=== PATIENT | male | born 1980 | race Caucasian/White ===

== ENCOUNTER 2019-07-21 11:25 | Emergency (ER) | payer OTHER, SELFPAY ==
--- NOTE | 2019-07-21 12:09 | RAD ---
Exam: Chest one view HISTORY:Pain. Trauma. Puncture the right axilla Caught him while reaching to get tires. Comparison: 09/14/2013 FINDINGS: Cardiac silhouette: Normal Aorta: Unremarkable Pulmonary vessels: Normal Costophrenic angles: Clear LUNGS: No masses or consolidation. Pneumothorax: None Osseous abnormalities: None No radiopaque foreign body in the right axilla. IMPRESSION: No acute cardiopulmonary process. No evidence of right-sided pneumothorax. No radiopaque foreign body in the right axilla.
--- NOTE | 2019-07-21 12:15 | RAD ---
Exam:3 views right shoulder HISTORY: Pain. Trauma. COMPARISON: None FINDINGS: Glenohumeral joint space is preserved. No fracture or dislocation. Visualized right ribs ar e unremarkable. IMPRESSION: No fracture or dislocation.
[2019-07-21] MEDS ORDERED: Morphine 4 MG/ML VIAL ONE ×4 (12:25→12:30)
[2019-07-21] MEDS ORDERED: Lidocaine 1% w/Epinephrine 1:100K 20 ML VIAL ONE (12:26)
== END 2019-07-21 13:15 | disposition home or self-care (01) ==
LOC: ERS 11:25
DX: S41.111A Laceration without foreign body of right upper arm, initial encounter (principal); F17.210 Nicotine dependence, cigarettes, uncomplicated; W26.8XXA Contact with other sharp object(s), not elsewhere classified, initial encounter; Y92.69 Other specified industrial and construction area as the place of occurrence of the external cause
CPT/HCPCS: 12002; 71045; 96374; J2001; J2270

== ENCOUNTER 2020-01-23 21:15 | Emergency (ER) | payer SELFPAY ==
[2020-01-24] MEDS ORDERED: diphenhydrAMINE 50 MG/ML VIAL ONE (00:23)
[2020-01-24] MEDS ORDERED: Acetaminophen 500 MG TAB ONE (00:23)
[2020-01-24] MEDS ORDERED: Metoclopramide HCl 10 MG/2 ML VIAL ONE (00:23)
--- NOTE | 2020-01-24 06:50 | CT ---
PRELIMINARY REPORT/[facility]/EMERGENCY AFTER HOURS PROCEDURE: EXAM: CT Head Without Intravenous Contrast. CLINICAL HISTORY: HEADACHE; HEAD THROBBING SINCE YESTERDAY/LAST NIGHT TECHNIQUE: Axial computed tomography images of the head/brain without intravenous contrast. COMPARISON: None provided. FINDINGS: BRAIN: No acute intraparenchymal hemorrhage. No mass lesion. No CT evidence for acute territorial inf arct. No midline shift or extra-axial collection. VENTRICLES: No hydrocephalus. ORBITS: The orbits are unremarkable. SINUSES AND MASTOIDS: The paranasal sinuses and mastoid air cells are clear. SOFT TISSUES: No significant facial or scalp soft tissue swelling evident. No radiopaque foreign body is seen. BONES: No acute skull fracture. IMPRESSION: No acute intracranial abnormality. ELECTRONICALLY SIGNED BY: Carmelita Hudson MD Jan 24, 2020 12:51:44 AM [employer] This report is intended for review by the ordering physician only, in accordance of law. If you recei ve this report in error, please call [facility] at [phone]. FINAL REPORT EMERGENCY AFTER HOURS CT BRAIN WITHOUT CONTRAST: FINDINGS/IMPRESSION: I agree with the findings and impression given in the preliminary report per [facility] physici an. No evidence of acute intracranial abnormality.
== END 2020-01-24 02:09 | disposition home or self-care (01) ==
LOC: ERS 21:15
DX: R51 Headache (principal); F17.210 Nicotine dependence, cigarettes, uncomplicated
CPT/HCPCS: 70450; 96365; 96366; 96375; J1200; J2765

== ENCOUNTER 2021-03-27 10:25 | Emergency (ER) | payer SELFPAY ==
[2021-03-27] MEDS ORDERED: Clindamycin/D5W 900 mg/50 ml Premix Bag ONE (11:10)
[2021-03-27 11:15] LABS: #Basophils 0.1 thou/uL (0.0-0.2); #Eosinphils 1.1 thou/uL (0.0-0.7); #Lymphocytes 2.2 thou/uL (1.20-3.40); #Monocytes 1.4 thou/uL (0.11-0.59); #Neutrophils 10.3 thou/uL (1.40-6.50); %Basophils 0.8 % (0.0-1.0); %Lymphocytes 14.4 % (21.0-51.0); %Monocytes 9.3 % (0.0-10.0); %Neutrophils 68.5 % (42.0-75.0); Hemoglobin 15.7 g/dL (14.0-18.0); Mean Corpuscular HGB CONC 31.6 g/dL (32.0-36.0); Mean Corpuscular Hemoglobin 30.4 pg (27.0-31.0); Mean Corpuscular Volume 96.3 fL (78.0-98.0); Mean Platelet Volume 6.9 fL (7.4-10.4); Platelet Count 376 thou/uL (130-400); RBC Distribution Width 12.1 % (11.5-14.5); Red Blood Cell (RBC) Count 5.18 mill/uL (4.70-6.10)
[2021-03-27] MEDS ORDERED: Lidocaine 1% w/Epinephrine 1:100K 20 ML VIAL ONE (11:52)
[2021-03-27 12:16] LABS: Albumin 3.8 g/dL (3.5-5.0)
[2021-03-27 12:17] LABS: Chloride 102 mmol/L (98-107); Sodium 136 mmol/L (136-145)
[2021-03-27 12:18] LABS: Calcium 8.9 mg/dL (7.8-10.44)
[2021-03-27 12:19] LABS: Globulin 3.6 g/dL (2.4-3.5); Glucose 101 mg/dL (70-105); Protein, Total 7.4 g/dL (6.0-8.3)
[2021-03-27 12:20] LABS: Anion Gap 10 mmol/L (10-20); Bilirubin, Total 0.5 mg/dL (0.2-1.2); Carbon Dioxide 28 mmol/L (22-29)
[2021-03-27 12:21] LABS: Alkaline Phosphatase 144 U/L (40-110)
[2021-03-27 12:22] LABS: Calc. Creatinine Clearance 0 mL/min (70-130)
[2021-03-27 12:23] LABS: BUN (Urea Nitrogen) 8 mg/dL (8.9-20.6)
[2021-03-27 12:24] LABS: ALT (SGPT) 10 U/L (8-55); AST (SGOT) 14 U/L (5-34)
== END 2021-03-27 12:57 | disposition home or self-care (01) ==
LOC: ERS 10:25
DX: L02.414 Cutaneous abscess of left upper limb (principal); F17.210 Nicotine dependence, cigarettes, uncomplicated
CPT/HCPCS: 10060; 36415; 80053; 83605; 85025; 87040; 96365; J3490

== ENCOUNTER 2023-07-25 05:15 | Emergency (ER) | payer SELFPAY ==
[2023-07-25] MEDS ORDERED: Ondansetron ODT 4 MG TAB ONE (05:26)
[2023-07-25 05:49] LABS: #Basophils 0.1 thou/uL (0.0-0.2); #Eosinphils 0.5 thou/uL (0.0-0.7); #Monocytes 1.4 thou/uL (0.11-0.59); #Neutrophils 12.9 thou/uL (1.40-6.50); %Basophils 0.5 % (0.0-1.0); %Eosinophils 2.7 % (0.0-10.0); %Lymphocytes 14.1 % (21.0-51.0); %Monocytes 7.9 % (0.0-10.0); %Neutrophils 74.2 % (42.0-75.0); Hematocrit 36.1 % (42.0-52.0); Hemoglobin 11.8 g/dL (14.0-18.0); Mean Corpuscular HGB CONC 32.7 g/dL (32.0-36.0); Mean Corpuscular Hemoglobin 32.9 pg (27.0-31.0); Mean Corpuscular Volume 100.6 fl (78.0-98.0); Mean Platelet Volume 9.4 fL (7.4-10.4); Platelet Count 252 10x3/uL (130-400); RBC Distribution Width 13.5 % (11.5-14.5); Red Blood Cell (RBC) Count 3.59 mill/uL (4.70-6.10); White Blood Cell (WBC) Count 17.3 10x3/uL (4.8-10.8)
[2023-07-25] MEDS ORDERED: Atropine Sulfate 1 mg/10 ml Syringe ONE (05:53)
[2023-07-25] MEDS ORDERED: Ondansetron PF 4 MG/2 ML Vial ONE (05:54)
[2023-07-25 06:14] LABS: ALT (SGPT) 11 U/L (8-55); AST (SGOT) 19 U/L (5-34); Albumin 3.9 g/dL (3.5-5.0); Alkaline Phosphatase 84 U/L (40-110); Anion Gap 12 mmol/L (10-20); BUN (Urea Nitrogen) 14 mg/dL (8.9-20.6); Bilirubin, Total 0.2 mg/dL (0.2-1.2); Calc. Creatinine Clearance 0 mL/min (70-130); Calcium 9.8 mg/dL (7.8-10.44); Carbon Dioxide 29 mmol/L (22-29); Chloride 98 mmol/L (98-107); Estimated GFR 64; Globulin 3.2 g/dL (2.4-3.5); Glucose 112 mg/dL (70-105); Lipase 53 U/L (8-78); Potassium 4.2 mmol/L (3.5-5.1); Protein, Total 7.1 g/dL (6.0-8.3); Sodium 135 mmol/L (136-145)
[2023-07-25 06:18] LABS: Troponin I Less than 0.010 ng/mL (< 0.028)
[2023-07-25] MEDS ORDERED: fentaNYL 50 mcg/mL 1 mL Vial ONE (06:21)
[2023-07-25] MEDS ORDERED: Morphine 4 MG/ML VIAL ONE (08:58)
[2023-07-25] MEDS ORDERED: Promethazine HCl 25 MG/ML VIAL ONE (08:58)
[2023-07-25] MEDS ORDERED: Iopamidol-370 76% 500 ML MDV (1 ML CHARGE) ONE (10:06)
[2023-07-25 10:22] LABS: Bacteria/HPF None Seen HPF (None Seen); Bilirubin Negative (Negative); Blood, Urine Negative (Negative); CAUTI Indications for Culture Dysuria,urgency,freq; Clarity Turbid (Clear); Glucose, Urine (Dipstick) 50 mg/dL (Negative); Ketone, Urine Negative (Negative); Leukocyte Negative Leu/uL (Negative); Nitrite Negative (Negative); Protein, Urine (Dipstick) Negative (Neg-Trace); RBC/HPF 0-3 HPF (0-3); Specific Gravity, Urine 1.041 (1.002-1.036); Squamous Epithelial 0-3 HPF (0-3); Urobilinogen Normal mg/dL (Less than 2); WBC/HPF None Seen HPF (0-3)
[2023-07-25 10:24] LABS: Urine Culture Reflex No No
== END 2023-07-25 11:56 | disposition home or self-care (01) ==
LOC: ERS 05:15
DX: R11.10 Vomiting, unspecified (principal); R10.84 Generalized abdominal pain; R00.1 Bradycardia, unspecified; R19.7 Diarrhea, unspecified; F17.210 Nicotine dependence, cigarettes, uncomplicated
CPT/HCPCS: 36415; 74177; 80053; 81001; 83690; 84484; 85025; 93005; 96365; 96375; J0461; J2270; J2405; J2550; J3010; Q0162; Q9967

== ENCOUNTER 2023-10-21 17:57 | Inpatient (IN) | payer SELFPAY ==
[~2023-10-21 17:57] MED LIST: Iopamidol-370 76% 500 ML MDV (1 ML CHARGE) ONE
[2023-10-21] MEDS ORDERED: Ketorolac Tromethamine 30 MG/ML VIAL ONE (18:12)
[2023-10-21] MEDS ORDERED: Ondansetron PF 4 MG/2 ML Vial ONE (18:13)
[2023-10-21] MEDS ORDERED: Dicyclomine 20 MG TAB ONE (18:20)
[2023-10-21 18:35] LABS: #Basophils 0.1 thou/uL (0.0-0.2); #Monocytes 0.6 thou/uL (0.11-0.59); #Neutrophils 14.6 thou/uL (1.40-6.50); %Basophils 0.3 % (0.0-1.0); %Eosinophils 0.1 % (0.0-10.0); %Lymphocytes 5.7 % (21.0-51.0); %Monocytes 3.6 % (0.0-10.0); %Neutrophils 89.7 % (42.0-75.0); Hematocrit 39.8 % (42.0-52.0); Hemoglobin 13.2 g/dL (14.0-18.0); Mean Corpuscular HGB CONC 33.2 g/dL (32.0-36.0); Mean Corpuscular Hemoglobin 32.6 pg (27.0-31.0); Mean Corpuscular Volume 98.3 fl (78.0-98.0); Mean Platelet Volume 9.6 fL (7.4-10.4); Platelet Count 302 10x3/uL (130-400); RBC Distribution Width 13.6 % (11.5-14.5); Red Blood Cell (RBC) Count 4.05 mill/uL (4.70-6.10); White Blood Cell (WBC) Count 16.3 10x3/uL (4.8-10.8)
[2023-10-21] MEDS ORDERED: Haloperidol Lactate 5 MG/ML VIAL ONE (18:55)
[2023-10-21 19:00] LABS: ALT (SGPT) 18 U/L (8-55); AST (SGOT) 29 U/L (5-34); Albumin 4.4 g/dL (3.5-5.0); Alkaline Phosphatase 102 U/L (40-110); Anion Gap 13 mmol/L (10-20); BUN (Urea Nitrogen) 10 mg/dL (8.9-20.6); Bilirubin, Total 0.5 mg/dL (0.2-1.2); Calc. Creatinine Clearance 0 mL/min (70-130); Calcium 9.3 mg/dL (7.8-10.44); Carbon Dioxide 27 mmol/L (22-29); Chloride 100 mmol/L (98-107); Estimated GFR 88; Globulin 3.3 g/dL (2.4-3.5); Glucose 118 mg/dL (70-105); Lipase 18 U/L (8-78); Magnesium 1.8 mg/dL (1.6-2.6); Potassium 3.9 mmol/L (3.5-5.1); Protein, Total 7.7 g/dL (6.0-8.3); Sodium 136 mmol/L (136-145)
[2023-10-21 19:04] LABS: Troponin I Less than 0.010 ng/mL (< 0.028)
[2023-10-21 22:17] LABS: Troponin I Less than 0.010 ng/mL (< 0.028)
[2023-10-21 22:27] LABS: Bacteria/HPF None Seen HPF (None Seen); Bilirubin Negative (Negative); Blood, Urine Negative (Negative); CAUTI Indications for Culture Dysuria,urgency,freq; Clarity Clear (Clear); Glucose, Urine (Dipstick) 30 mg/dL (Negative); Ketone, Urine Trace mg/dL (Negative); Leukocyte Negative Leu/uL (Negative); Mucous/LPF Rare LPF (<2+); Nitrite Negative (Negative); Protein, Urine (Dipstick) 20 mg/dL (Neg-Trace); RBC/HPF 0-3 HPF (0-3); Squamous Epithelial 0-3 HPF (0-3); Urobilinogen Normal mg/dL (Less than 2); WBC/HPF 0-3 HPF (0-3)
[2023-10-21 22:28] LABS: Specific Gravity, Urine 1.054 (1.002-1.036); Urine Culture Reflex No No
[2023-10-21 23:55] VITALS: BMI 23.3
[2023-10-22 00:11] LABS: Amphetamine Detected (NotDetected); Barbiturates Screen Not Detected (NotDetected); Benzodiazepine Screen Not Detected (NotDetected); Cocaine Metabolite Screen Not Detected (NotDetected); Methadone Not Detected (NotDetected); Methamphetamine Detected (NotDetected); Opiate Screen Not Detected (NotDetected); Oxycodone Screen Not Detected (NotDetected); Phencyclidine (PCP) Not Detected (NotDetected); THC/Cannabinoid Screen Not Detected (NotDetected); Tricyclic Screen Not Detected (NotDetected)
[2023-10-22] MEDS: Ondansetron PF 4 MG/2 ML Vial IVP PRN (00:55)
[2023-10-22 01:30] LABS: Troponin I Less than 0.010 ng/mL (< 0.028)
[2023-10-22 04:41] LABS: #Monocytes 1.2 thou/uL (0.11-0.59); #Neutrophils 15.9 thou/uL (1.40-6.50); %Basophils 0.2 % (0.0-1.0); %Eosinophils 0.1 % (0.0-10.0); %Lymphocytes 7.4 % (21.0-51.0); %Monocytes 6.6 % (0.0-10.0); %Neutrophils 85.2 % (42.0-75.0); Hematocrit 39.8 % (42.0-52.0); Hemoglobin 12.7 g/dL (14.0-18.0); Mean Corpuscular HGB CONC 31.9 g/dL (32.0-36.0); Mean Corpuscular Hemoglobin 31.3 pg (27.0-31.0); Mean Platelet Volume 10.3 fL (7.4-10.4); Platelet Count 310 10x3/uL (130-400); RBC Distribution Width 13.6 % (11.5-14.5); Red Blood Cell (RBC) Count 4.06 mill/uL (4.70-6.10); White Blood Cell (WBC) Count 18.7 10x3/uL (4.8-10.8)
[2023-10-22 04:43] LABS: Hemoglobin A1c 5.4 % (4.0-6.0)
[2023-10-22 05:03] LABS: Anion Gap 16 mmol/L (10-20); BUN (Urea Nitrogen) 11 mg/dL (8.9-20.6); Calc. Creatinine Clearance 99 mL/min (70-130); Calcium 8.9 mg/dL (7.8-10.44); Carbon Dioxide 26 mmol/L (22-29); Chloride 98 mmol/L (98-107); Cholesterol 157 mg/dl (< 200 Desired); Estimated GFR 91; Glucose 101 mg/dL (70-105); HDL Cholesterol 52 mg/dL (>60 Neg Risk); LDL Cholesterol, Calculated 93 mg/dL; Potassium 3.5 mmol/L (3.5-5.1); Sodium 136 mmol/L (136-145); Triglycerides 62 mg/dL (Less than 150)
[2023-10-22 09:01] LABS: Free T4 (Free Thyroxine) Less than 0.40 ng/dL (0.70-1.48)
[2023-10-22] MEDS ORDERED: Levothyroxine Sodium 125 MCG TAB PO SCH (12:15)
[2023-10-22] MEDS ORDERED: Lorazepam 2 MG/ML VIAL SLOW IVP PRN (15:58)
[2023-10-23] MEDS: Ondansetron PF 4 MG/2 ML Vial IVP PRN (02:39)
[2023-10-23 04:44] LABS: #Monocytes 1.2 thou/uL (0.11-0.59); #Neutrophils 12.3 thou/uL (1.40-6.50); %Basophils 0.2 % (0.0-1.0); %Eosinophils 0.1 % (0.0-10.0); %Lymphocytes 9.6 % (21.0-51.0); %Neutrophils 81.5 % (42.0-75.0); Hematocrit 39.7 % (42.0-52.0); Hemoglobin 13.2 g/dL (14.0-18.0); Mean Corpuscular HGB CONC 33.2 g/dL (32.0-36.0); Mean Corpuscular Hemoglobin 32.2 pg (27.0-31.0); Mean Corpuscular Volume 96.8 fl (78.0-98.0); Mean Platelet Volume 10.1 fL (7.4-10.4); Platelet Count 302 10x3/uL (130-400); RBC Distribution Width 13.5 % (11.5-14.5); White Blood Cell (WBC) Count 15.1 10x3/uL (4.8-10.8)
[2023-10-23 05:11] LABS: Anion Gap 14 mmol/L (10-20); BUN (Urea Nitrogen) 13 mg/dL (8.9-20.6); Calc. Creatinine Clearance 102 mL/min (70-130); Calcium 8.9 mg/dL (7.8-10.44); Carbon Dioxide 27 mmol/L (22-29); Chloride 97 mmol/L (98-107); Estimated GFR 95; Glucose 95 mg/dL (70-105); Potassium 3.5 mmol/L (3.5-5.1); Sodium 134 mmol/L (136-145)
[2023-10-23] MEDS: Levothyroxine Sodium 125 MCG TAB PO SCH (06:09)
[2023-10-23 17:19] LABS: Lactic Acid 1.4 mmol/L (0.5-2.2)
[2023-10-23] MEDS: Acetaminophen 325 MG TAB PO PRN (19:42)
[2023-10-24 04:21] LABS: #Monocytes 1.5 thou/uL (0.11-0.59); #Neutrophils 9.2 thou/uL (1.40-6.50); %Basophils 0.2 % (0.0-1.0); %Eosinophils 0.2 % (0.0-10.0); %Lymphocytes 13.4 % (21.0-51.0); %Monocytes 11.8 % (0.0-10.0); %Neutrophils 73.9 % (42.0-75.0); Hematocrit 42.6 % (42.0-52.0); Hemoglobin 14.3 g/dL (14.0-18.0); Mean Corpuscular HGB CONC 33.6 g/dL (32.0-36.0); Mean Corpuscular Hemoglobin 32.4 pg (27.0-31.0); Mean Corpuscular Volume 96.6 fl (78.0-98.0); Mean Platelet Volume 9.8 fL (7.4-10.4); Platelet Count 307 10x3/uL (130-400); RBC Distribution Width 13.2 % (11.5-14.5); Red Blood Cell (RBC) Count 4.41 mill/uL (4.70-6.10); White Blood Cell (WBC) Count 12.4 10x3/uL (4.8-10.8)
[2023-10-24 04:44] LABS: Anion Gap 15 mmol/L (10-20); BUN (Urea Nitrogen) 13 mg/dL (8.9-20.6); Calc. Creatinine Clearance 101 mL/min (70-130); Calcium 9.3 mg/dL (7.8-10.44); Carbon Dioxide 26 mmol/L (22-29); Chloride 96 mmol/L (98-107); Estimated GFR 94; Glucose 85 mg/dL (70-105); Potassium 3.6 mmol/L (3.5-5.1); Sodium 133 mmol/L (136-145)
[2023-10-24] MEDS: Levothyroxine Sodium 125 MCG TAB PO SCH (05:38)
[2023-10-24] MEDS: Acetaminophen 325 MG TAB PO PRN ×3 (08:55→17:22)
[2023-10-24] MEDS ORDERED: Bisacodyl 10 MG SUPP PR SCH (11:15)
[2023-10-24] MEDS: Sodium Chloride 0.9% 1,000 ML IV SCH (16:23)
[2023-10-25] MEDS ORDERED: Nitroglycerin 0.4 MG TAB (25 Tab Bottle) SL PRN (02:27)
[2023-10-25] MEDS: Sodium Chloride 0.9% 1,000 ML IV SCH (02:36)
[2023-10-25 05:20] LABS: #Monocytes 1.3 thou/uL (0.11-0.59); #Neutrophils 8.3 thou/uL (1.40-6.50); %Basophils 0.4 % (0.0-1.0); %Eosinophils 0.3 % (0.0-10.0); %Lymphocytes 13.6 % (21.0-51.0); %Monocytes 11.5 % (0.0-10.0); %Neutrophils 73.6 % (42.0-75.0); Hematocrit 43.9 % (42.0-52.0); Hemoglobin 14.9 g/dL (14.0-18.0); Mean Corpuscular HGB CONC 33.9 g/dL (32.0-36.0); Mean Corpuscular Hemoglobin 32.3 pg (27.0-31.0); Mean Platelet Volume 9.7 fL (7.4-10.4); Platelet Count 304 10x3/uL (130-400); RBC Distribution Width 13.1 % (11.5-14.5); Red Blood Cell (RBC) Count 4.62 mill/uL (4.70-6.10); White Blood Cell (WBC) Count 11.2 10x3/uL (4.8-10.8)
[2023-10-25] MEDS: Levothyroxine Sodium 125 MCG TAB PO SCH (06:06)
[2023-10-25 07:41] VITALS: BP 141/82; TEMP 98.3
== END 2023-10-25 10:25 | disposition left against medical advice (07) | DRG 644 ==
LOC: ERS 17:57 → 2SW 20:41 → OBSVTOIN 10-22 15:12
PROVIDERS: ADMIT Internal Medicine; ATTEND Family Medicine
DX: E03.9 Hypothyroidism, unspecified (principal); K56.7 Ileus, unspecified; R00.1 Bradycardia, unspecified; D72.829 Elevated white blood cell count, unspecified; Z79.899 Other long term (current) drug therapy; Z90.49 Acquired absence of other specified parts of digestive tract; F17.210 Nicotine dependence, cigarettes, uncomplicated; F15.10 Other stimulant abuse, uncomplicated; F12.10 Cannabis abuse, uncomplicated
CPT/HCPCS: 36415; 71045; 74018; 74177; 76536; 80048; 80053; 80061; 80306; 81001; 83036; 83605; 83690; 83735; 84439; 84443; 84481; 84484; 85025; 93005; 93306; 96374; 96375; 96376; G0378; J1630; J1885; J2060; J2405; J7050; Q9967

== ENCOUNTER 2024-01-03 14:38 | Emergency (ER) | payer SELFPAY ==
[2024-01-03] MEDS ORDERED: Haloperidol Lactate 5 MG/ML VIAL ONE (15:08)
[2024-01-03 15:39] LABS: #Basophils 0.1 thou/uL (0.0-0.2); #Monocytes 0.7 thou/uL (0.11-0.59); #Neutrophils 14.2 thou/uL (1.40-6.50); %Basophils 0.4 % (0.0-1.0); %Eosinophils 0.1 % (0.0-10.0); %Lymphocytes 5.8 % (21.0-51.0); %Monocytes 4.6 % (0.0-10.0); %Neutrophils 88.7 % (42.0-75.0); Hematocrit 43.8 % (42.0-52.0); Hemoglobin 14.7 g/dL (14.0-18.0); Mean Corpuscular HGB CONC 33.6 g/dL (32.0-36.0); Mean Corpuscular Hemoglobin 31.6 pg (27.0-31.0); Mean Corpuscular Volume 94.2 fl (78.0-98.0); Mean Platelet Volume 9.7 fL (7.4-10.4); Platelet Count 347 10x3/uL (130-400); RBC Distribution Width 13.6 % (11.5-14.5); Red Blood Cell (RBC) Count 4.65 mill/uL (4.70-6.10)
[2024-01-03 16:09] LABS: ALT (SGPT) 20 U/L (8-55); AST (SGOT) 24 U/L (5-34); Alkaline Phosphatase 121 U/L (40-110); Anion Gap 18 mmol/L (10-20); BUN (Urea Nitrogen) 9 mg/dL (8.9-20.6); Bilirubin, Total 0.9 mg/dL (0.2-1.2); Calc. Creatinine Clearance 0 mL/min (70-130); Calcium 10.2 mg/dL (7.8-10.44); Carbon Dioxide 20 mmol/L (22-29); Chloride 101 mmol/L (98-107); Estimated GFR 81; Globulin 3.9 g/dL (2.4-3.5); Glucose 103 mg/dL (70-105); Lipase 17 U/L (8-78); Potassium 4.3 mmol/L (3.5-5.1); Protein, Total 8.9 g/dL (6.0-8.3); Sodium 135 mmol/L (136-145)
[2024-01-03 16:11] LABS: Troponin I Less than 0.010 ng/mL (< 0.028)
== END 2024-01-03 17:23 | disposition home or self-care (01) ==
LOC: ERS 14:38
DX: R11.2 Nausea with vomiting, unspecified (principal); R10.13 Epigastric pain; R10.816 Epigastric abdominal tenderness; F17.210 Nicotine dependence, cigarettes, uncomplicated
CPT/HCPCS: 71045; 80053; 83690; 84484; 85025; 93005; 96365; 96366; J1630